=== PATIENT | male | born 1940 | race Caucasian/White ===

== ENCOUNTER → 2018-08-01 09:34 | Outpatient (CLI) | payer MEDICARE, OTHER, SELFPAY | PROVIDERS: Family Provider Family Medicine; Visit Provider Physical Medicine & Rehabilitation | DX: M54.5 Low back pain (principal) ==

== ENCOUNTER → 2018-08-08 13:52 | Outpatient (CLI) | payer MEDICARE, OTHER, SELFPAY ==
--- NOTE | 2018-08-08 | DI.MRI.S_ITS ---
PROCEDURE: MR LUMBAR SPINE WO CON INDICATIONS: LOW BACK PAIN TECHNIQUE: Noncontrast sagittal T1 spin echo and T2 fast echo, sagittal STIR, axial T1 and T2 fast spin echo through the lumbar spine. In cases with scoliosis, additional coronal T2 fast spin echo may be performed. COMPARISON: [facility] Outside Film, CR, XR LUMBAR SPINE 2 OR 3 VIEWS, 08/08/2017, 10:42. FINDINGS: Image quality: Excellent. Alignment and Curvature: 5 lumbar type vertebral bodies are present by plain film. Mild, grade 1 retrolisthesis of L1 on L2 is present. Mild grade 1 retrolisthesis of L5 on S1 is present. Bone Marrow: Marrow is of normal overall signal. No acute vertebral body compression fractures. There is mild reactive signal within the endplates adjacent to the T11-T12, T12-L1, L1-L2, L2-L3, L3-L4, L4-L5, and L5-S1 intervertebral discs. Spinal Cord: Conus medullaris terminates at the mid L2 level. Visualized cord demonstrates normal signal and size. Paraspinous Soft Tissues: No paravertebral masses. L1-L2: Severe disc height loss and desiccation. Moderate diffuse disc bulge/osteophyte. Mild facet and ligamentum hypertrophy. Mild canal stenosis. Mild bilateral foraminal stenosis. L2-L3: Moderate disc height loss and desiccation. Moderate diffuse disc bulge. Moderate facet and ligament flavum hypertrophy. There is moderate to severe canal stenosis and mild bilateral foraminal stenosis. L3-L4: Severe disc height loss and desiccation. Mild diffuse disc bulge. Moderate facet and ligamentum flavum hypertrophy. Mild canal stenosis. Moderate left and mild right foraminal stenosis. L4-L5: Severe disc height loss and desiccation. Mild diffuse disc bulge with superimposed broad-based left far lateral protrusion. Mild bilateral facet and ligamentum flavum hypertrophy. Mild canal stenosis. Mild right and moderate left foraminal stenosis. L5-S1: Severe disc height loss and desiccation. Moderate diffuse disc bulge with superimposed broad-based right far lateral protrusion. Mild bilateral facet hypertrophy. Mild canal stenosis. Moderate right and mild left foraminal stenosis. IMPRESSION: 1. Multilevel degenerative disc and facet disease, as well as ligamentum flavum hypertrophy. 2. Multilevel canal stenoses, worst at L2-L3, where there is moderate to severe canal stenosis. 3. Multilevel foraminal stenoses, worst at L3-L4 on the left, at L4-L5 on the left, and at L5-S1 on the right, where there are moderate foraminal stenoses present. Dictated by: Cooper Ramon M.D. on 08/08/2018 at 16:07 Approved by: Cooper Ramon M.D. on 08/08/2018 at 16:12
== END ==
PROVIDERS: Family Provider Family Medicine; Visit Provider Physical Medicine & Rehabilitation
DX: M54.5 Low back pain (principal); M51.36 Other intervertebral disc degeneration, lumbar region; M51.37 Other intervertebral disc degeneration, lumbosacral region; M48.061 Spinal stenosis, lumbar region without neurogenic claudication; M48.07 Spinal stenosis, lumbosacral region
CPT/HCPCS: 72148

== ENCOUNTER 2018-09-04 14:00 | Outpatient (RCR) | payer MEDICARE, OTHER, SELFPAY | END 2018-09-08 15:06 | LOC: CAR 14:00 | PROVIDERS: Family Provider Family Medicine; Visit Provider Family Medicine | DX: Z95.5 Presence of coronary angioplasty implant and graft (principal) | CPT/HCPCS: 93798 ==